=== PATIENT | female | born 1940 | race Caucasian/White ===

== ENCOUNTER 2016-05-03 06:47 | Day surgery (SDC) | payer MEDICARE, OTHER ==
[2016-05-03] VITALS (8 sets, daily range): BP systolic 99–142; BP diastolic 55–67; PULSE 60–65; RESP 17–24; Ht 157.5 cm; Wt 72.0 kg
[~2016-05-03] VITALS: Ht 157.5 cm; Wt 72.0 kg
--- NOTE | 2016-05-03 08:21 | HPN ---
Date/Time of Note Date/Time of Note DATE: 05/03/16 TIME: 08:21 Interval H&P Admission Note Pt. seen H&P reviewed: No system changes TJ FERRELL MD May 03, 2016 08:21
[2016-05-03] MEDS ORDERED: OMEP20CA16 PO (08:31)
[2016-05-03] MEDS ORDERED: RANI150T9 PO (08:31)
[2016-05-03] MEDS ORDERED: CLON-379 PO (08:31)
[2016-05-03] MEDS ORDERED: NIFE30TA7 PO (08:31)
[2016-05-03] MEDS ORDERED: DOXE25CA43 PO (08:31)
[2016-05-03] MEDS ORDERED: IBUP-1542 PO (08:31)
[2016-05-03] MEDS ORDERED: LISI10TA2 PO (08:31)
[2016-05-03] MEDS ORDERED: BUPIVACAINE 0.25%/EPI (SDV) 30 ML INJ ONE (09:19)
[2016-05-03] MEDS ORDERED: LIDOCAINE 1% (MPF) 30 ML INJ ONE (09:19)
[2016-05-03] MEDS ORDERED: FENTAnyl 50 MCG/ML VIAL ONE (09:37)
[2016-05-03] MEDS ORDERED: MEPERIDINE 25 MG INJ IV PRN (10:00)
[2016-05-03] MEDS ORDERED: FENTAnyl 50 MCG/ML VIAL IV PRN (10:00)
[2016-05-03] MEDS ORDERED: morphine (1 MG/ML) 10ML SYRINGE IV PRN ×2 (10:00)
[2016-05-03] MEDS ORDERED: ONDANSETRON 4 MG INJ IV PRN ×2 (10:00→10:30)
[2016-05-03] MEDS ORDERED: PROPOFOL 20 ML ONE (10:02)
[2016-05-03] MEDS ORDERED: CEFAZOLIN 1 GM INJ ONE (10:02)
[2016-05-03] MEDS ORDERED: OXYCODONE/ACETAMINOPHEN (5/325) TAB PO PRN ×2 (10:30)
[2016-05-03] MEDS ORDERED: morphine 2 MG INJ IV PRN (10:30)
--- NOTE | 2016-05-03 11:27 | OPR ---
DATE OF OPERATION: 05/03/2016 PREOPERATIVE DIAGNOSIS: Sebaceous cyst of scalp x3 (4 cm, 3 cm and 3 cm). SURGEON: Tj Stevenson MD ANESTHESIA: Local plus monitored anesthesia care. ANESTHESIOLOGIST: Shekhar Kaminski MD OPERATIVE REPORT: The patient was placed in the supine position and the 3 scalp areas on the dome o f the scalp and right mid scalp and right posterior scalp were shaved, prepped and draped. A total of 12 mL of an equal parts mixture of 1% lidocaine with epinephrine and 0.25% Marcaine with epinephr ine were used to infiltrate the skin and subcutaneous tissues around each of the [address]. [address] of the cyst required excision with a 4 cm skin ellipse because of the marked redundant stretched skin. This was excised sharply from surrounding tissues and submitted intact. The wound was then c losed with interrupted vertical mattress sutures of 3-0 Prolene. Next, the remaining two 3 cm cysts were excised by simply making an incision over the cyst and shelling out the cyst and submitting it . Both wounds were closed with interrupted mattress sutures of 3-0 Prolene. Operative blood loss l ess than 5 mL. Sponge and needle counts were reported as correct x2. The patient tolerated the proc edure well and is now transferred to the recovery room in satisfactory and stable condition. Dictated By: TJ RGAMAJO/NTS Conf#: [id number] DID#: [id number] CC: LEYLA RICKS M.D.;*EndCC*
== END 2016-05-03 11:40 | disposition home or self-care (01) ==
LOC: SDS 06:47
PROVIDERS: ATTEND Surgery
DX: L72.11 Pilar cyst (principal); I10 Essential (primary) hypertension
CPT/HCPCS: 11426; 88307; J0690; J3010